=== PATIENT | female | born 1980 | race Caucasian/White ===

== ENCOUNTER → 2017-06-21 | Outpatient (CLI) | payer OTHER ==
--- NOTE | 2017-06-21 16:17 | Diagnostic Imaging Report ---
EXAM: Ultrasound of the neck. INDICATION: Neck mass FINDINGS: The right thyroid lobe is 5.1 x 2 x 1.4 cm. The left lobe is 10.1 x 2.5 x 1.9 ccm. There is a partially exophytic thyroid mass arising from the upper aspect of the left thyroid lobe measuring 4.5 x 2.5 x 3.4 cm. This mass has internal vascularity with solid appearance. Margins are smooth. IMPRESSION: A 4.5 cm solid mass arising from the upper aspect of the left thyroid lobe is seen. Evaluation with an ultrasound-guided biopsy is recommended. Report faxed to Dr. Niranjan Rivera at 4:20 p.m. 06/21/2017/cb Dictated by: Dictated on workstation # [id number]
== END ==
LOC: RAD 14:05
PROVIDERS: ATTEND Family Medicine
DX: E04.9 Nontoxic goiter, unspecified (principal)
CPT/HCPCS: 76536

== ENCOUNTER → 2017-07-05 | Outpatient (CLI) | payer OTHER ==
[~2017-07-05] VITALS: Ht 167.6 cm; Wt 102.1 kg
[~2017-07-05] MED LIST: LIDOCAINE 1% INJ 20 ML (XYLOCAINE) VIAL INJ ONE
[2017-07-05 13:00] VITALS: BP 118/68
[2017-07-05 13:32] VITALS: BP 124/71
--- NOTE | 2017-07-05 16:29 | Diagnostic Imaging Report ---
EXAMINATION: US-guided core biopsy-thyroid. INDICATION: Left thyroid. Current history and physical and other medical records are reviewed prior to the procedure. CONSENT: Informed consent was obtained from the patient. The risks, benefits, potential complications and alternatives were reviewed and all questions answered to the patient's satisfaction. The patient's vital signs, cardiac rhythm, and pulse oximetry with observed throughout the procedure by qualified nursing personnel. Sedation/medications: none. FINDINGS: Left thyroid mass. PROCEDURE: After maximal sterile barrier technique preparation and draping, 1% lidocaine was utilized for local anesthesia. With the patient in supine position, and via anterior approach, a 19-gauge guide needle is introduced into the left thyroid mass under live ultrasound guidance. After confirming adequate positioning with saved ultrasound images, multiple 20 gauge core biopsy specimens were obtained. The patient tolerated the procedure well with no immediate complications. IMPRESSION: Successful US-guided core biopsy of left thyroid mass. Dictated by: Dictated on workstation # [id number]
== END ==
LOC: RAD 12:39
PROVIDERS: ATTEND Family Medicine
DX: R22.1 Localized swelling, mass and lump, neck (principal)
CPT/HCPCS: 76942

== ENCOUNTER → 2017-08-08 | Outpatient (CLI) | payer OTHER ==
[2017-08-08 17:30] LABS: FREE T4 (FREE THYROXINE) 0.98 NG/DL (0.70-1.48)
== END ==
LOC: LAB 16:25
PROVIDERS: ATTEND Surgery
DX: E04.1 Nontoxic single thyroid nodule (principal)
CPT/HCPCS: 36415; 84439; 84443; 84480; 86376; 86800

== ENCOUNTER 2017-08-13 05:47 | Outpatient (CLI) | payer OTHER ==
[~2017-08-13] VITALS: Ht 167.6 cm; Wt 128.4 kg
[2017-08-13] MEDS ORDERED: LISI-552 PO (14:45)
[2017-08-13] MEDS ORDERED: IBUP-1780 PO (14:45)
[2017-08-13] MEDS ORDERED: HYDR25TA4 PO (14:45)
[2017-08-13] MEDS ORDERED: PANT40TA3 PO (14:45)
[2017-08-13] MEDS ORDERED: BUPR-168 PO (14:45)
[2017-08-13] MEDS ORDERED: PROP40TA5 PO (14:54)
== END 2017-08-13 15:13 ==
LOC: PREOP 05:47
PROVIDERS: ATTEND Surgery
DX: Z01.818 Encounter for other preprocedural examination (principal); E04.1 Nontoxic single thyroid nodule

== ENCOUNTER 2017-08-17 05:53 | Day surgery (SDC) | payer OTHER ==
[~2017-08-17] VITALS: Ht 167.6 cm; Wt 128.4 kg
[2017-08-17] VITALS (8 sets, daily range): BP systolic 95–119; BP diastolic 56–94
[~2017-08-17 05:53] MED LIST changes: +BUPR-168 PO; +HYDR25TA4 PO; +IBUP-1780 PO; -LIDOCAINE 1% INJ 20 ML (XYLOCAINE) VIAL INJ ONE; +LISI-552 PO; +PANT40TA3 PO; +PROP40TA5 PO
--- OUTSIDE RECORDS SUMMARY | 2017-08-17 05:57 | XMS REPORT | Continuity of Care Document ---
Author Author [facility] Organization [facility] Address Unknown Phone Unavailable Allergies Active Description Code Type Severity Reaction Onset Reported/Identified Relationship to Patient Clinical Status Yes No Known Drug Allergies [id number] Drug Allergy Unknown N/A 07/05/2017 Medications There is no data. Problems Date Dx Coded Attending Type Code Diagnosis Diagnosed By 10/20/2015 SHERYLLIZBETH PAINT LINE OPERATOR Ot M25.571 10/20/2015 SHERYLLIZBETH PAINT LINE OPERATOR Ot R53.83 10/29/2015 MACKENZIELIZBETH WOODWARD PAINT LINE OPERATOR Ot M25.571 10/29/2015 SHERYLLIZBETH PAINT LINE OPERATOR Ot R53.83 11/03/2015 DALIZBETH WOODWARD PAINT LINE OPERATOR Ot R22.31 11/03/2015 DALIZBETH WOODWARD PAINT LINE OPERATOR Ot Z12.31 11/08/2015 DAJANUARYLIZBETH SKY PAINT LINE OPERATOR Ot R22.31 11/08/2015 DALIZBETH WOODWARD PAINT LINE OPERATOR Ot Z12.31 08/09/2016 LIZBETH SAUCEDO PAINT LINE OPERATOR Ot M25.571 PAIN IN RIGHT ANKLE AND JOINTS OF RIGHT 08/09/2016 DALIZBETH WOODWARD PAINT LINE OPERATOR Ot R53.83 OTHER FATIGUE 08/09/2016 DALIZBETH WOODWARD PAINT LINE OPERATOR Ot R22.31 LOCALIZED SWELLING, MASS AND LUMP, RIGHT 08/09/2016 DALIZBETH WOODWARD PAINT LINE OPERATOR Ot Z12.31 ENCNTR SCREEN MAMMOGRAM FOR MALIGNANT NE 06/20/2017 DALIZBETH WOODWARD PAINT LINE OPERATOR Ot M25.571 PAIN IN RIGHT ANKLE AND JOINTS OF RIGHT 06/20/2017 DALIZBETH WOODWARD PAINT LINE OPERATOR Ot R53.83 OTHER FATIGUE 06/20/2017 DAJANUARYLIZBETH SKY PAINT LINE OPERATOR Ot R22.31 LOCALIZED SWELLING, MASS AND LUMP, RIGHT 06/20/2017 DATRACELIZBETH PAINT LINE OPERATOR Ot Z12.31 ENCNTR SCREEN MAMMOGRAM FOR MALIGNANT NE 06/20/2017 LIZBETH SAUCEDO BRADLEY Ot M25.571 PAIN IN RIGHT ANKLE AND JOINTS OF RIGHT 06/20/2017 LIZBETH SAUCEDO BRADLEY Ot R53.83 OTHER FATIGUE 06/20/2017 LIZBETH SAUCEDO APRN Ot R22.31 LOCALIZED SWELLING, MASS AND LUMP, RIGHT 06/20/2017 LIZBETH SAUCEDO BRADLEY Ot Z12.31 ENCNTR SCREEN MAMMOGRAM FOR MALIGNANT NE 06/22/2017 EDWARDO ROSE MD Ot E04.9 NONTOXIC GOITER, UNSPECIFIED 07/06/2017 EDWARDO ROSE MD Ot R22.1 LOCALIZED SWELLING, MASS AND LUMP, NECK 07/18/2017 EDWARDO ROSE MD Ot R22.1 LOCALIZED SWELLING, MASS AND LUMP, NECK Procedures There is no data. Results There is no data. Encounters ACCT No. Visit Date/Time Discharge Status Pt. Type Provider Facility Loc./Unit Complaint [id number] 08/13/2017 05:47:00 08/13/2017 15:13:00 DIS Outpatient ANTON ESCALONA MD [facility] PREOP LEFT THYROID NODULE [id number] 08/08/2017 16:25:00 08/08/2017 23:59:59 CLS Outpatient ANTON ESCALONA MD [facility] LAB LEFT THYROID NODULE [id number] 07/05/2017 12:39:00 07/05/2017 23:59:59 CLS Outpatient EDWARDO ROSE MD [facility] RAD LT THYROID MASS [id number] 06/21/2017 14:05:00 06/21/2017 23:59:59 CLS Outpatient EDWARDO ROSE MD [facility] RAD NECK MASS [id number] 10/28/2015 15:15:00 10/28/2015 23:59:59 CLS Outpatient LIZBETH SAUCEDO APRN [facility] RAD SCREENING,SWELLING, MASS AND LUMP RIGHT UPPER LIMB [id number] 10/19/2015 11:06:00 10/19/2015 23:59:59 CLS Outpatient LIZBETH SAUCEDO APRN [facility] CARD FATIGUE,PAIN IN RIGHT ANKLE [id number] 08/17/2017 08:00:00 PEN Preadmit IQRA BARRERA, ANTON Abdi [facility] LEFT THYROID NODULE
[2017-08-17] MEDS ORDERED: ceFAZolin 2 GM/50 ML NS 50 ML IV ONE (06:30)
[2017-08-17 06:47] LABS: BASOPHILS # (AUTO) 0.1 10^3/uL (0.0-0.1); BASOPHILS % (AUTO) 1 % (0-10); EOSINOPHILS # (AUTO) 0.2 10^3/uL (0.0-0.3); EOSINOPHILS % (AUTO) 3 % (0-10); HEMATOCRIT 42 % (35-52); HEMOGLOBIN 14.9 G/DL (11.5-16.0); LYMPHOCYTES % (AUTO) 13 % (12-44); MEAN CORPUSCULAR HEMOGLOBIN 33 PG (25-34); MEAN CORPUSCULAR HGB CONC 35 G/DL (32-36); MEAN CORPUSCULAR VOLUME 93 FL (80-99); MEAN PLATELET VOLUME 11.4 FL (7.4-10.4); MONOCYTES # (AUTO) 1.3 X 10^3 (0.0-1.0); MONOCYTES % (AUTO) 16 % (0-12); NEUTROPHILS # (AUTO) 5.3 X 10^3 (1.8-7.8); NEUTROPHILS % (AUTO) 68 % (42-75); PLATELET COUNT 237 10^3/uL (130-400); RED BLOOD COUNT 4.56 10^6/uL (4.35-5.85); RED CELL DISTRIBUTION WIDTH 14.3 % (10.0-14.5); WHITE BLOOD COUNT 7.8 10^3/uL (4.3-11.0)
[2017-08-17 07:03] LABS: BUN/CREATININE RATIO 9; CALCIUM 9.6 MG/DL (8.5-10.1); CARBON DIOXIDE 24 MMOL/L (21-32); CHLORIDE 104 MMOL/L (98-107); CREATININE SERUM 0.78 MG/DL (0.60-1.30); GFR ESTIMATED > 60; GLUCOSE 108 MG/DL (70-105); POTASSIUM 3.6 MMOL/L (3.6-5.0); SODIUM 140 MMOL/L (135-145)
[2017-08-17] MEDS ORDERED: THROMBIN SPRAY KIT 5,000 UNIT VIAL ONE (07:12)
[2017-08-17] MEDS ORDERED: BUP/EPI 0.5% 1:200,000 (MARCAINE) 10ML VIAL IJ ONE (07:12)
[2017-08-17] MEDS ORDERED: SEVOFLURANE (ULTANE) 15 ML INHAL SOLN ONE ×7 (07:14→10:05)
[2017-08-17] MEDS ORDERED: proPOfol 200 MG/20 ML (DIPRIVAN) VIAL IV ONE (07:14)
[2017-08-17] MEDS ORDERED: LIDOCAINE PF 2% 5 ML (XYLOCAINE) VIAL ONE (07:14)
[2017-08-17] MEDS ORDERED: SUCCINYLCHOLINE INJ 100 MG/5 ML SYR ONE (07:14)
[2017-08-17] MEDS ORDERED: fentaNYL INJECTION 100 MCG/2 ML AMP ONE ×2 (07:15→10:05)
[2017-08-17] MEDS ORDERED: MIDAZOLAM 2 MG/2 ML (VERSED) VIAL ONE (07:15)
--- NOTE | 2017-08-17 07:47 | Progress Note-Pre Operative ---
Pre-Operative Progress Note H&P Reviewed The H&P was reviewed, patient examined and no changes noted. 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
[2017-08-17] MEDS ORDERED: LACTATED RINGERS 1,000 ML IV PRN (09:23)
[2017-08-17] MEDS ORDERED: DEXAMETHASONE 10 MG/ML (DECADRON) 1 ML VIAL ONE (10:05)
--- NOTE | 2017-08-17 10:13 | Operative Report ---
Operative Report Date of Procedure/Surgery Aug 17, 2017 Surgeon (s) ANTON ESCALONA MD [employer]ing Press Operator (s): Erasto Cruz (Medi Student) Post-Operative Diagnosis Follicular adenoma of left lobe of thyroid Procedure Performed Left hemithyroidectomy with frozen section analysis Intraoperative nerve monitoring Description of Procedure Anesthesia Type: General Estimated blood loss (mL): Minimal Specimen(s) collected/removed left lobe of thyroid with isthmus Description of the Procedure Indication for procedure: A 4.5 cm, left thyroid nodule was identified on a physical examination by her primary physician. Ultrasound confirmed this and core biopsy was indicative of a follicular neoplasm. Therefore, it was felt reasonable to proceed with hemithyroidectomy to establish a definitive diagnosis. Should carcinoma be found on frozen section, the requirement for completion thyroidectomy was discussed. With reference to the procedure, expected recovery, complications of hematoma, transient hoarseness of voice and cardio-respiratory dysfunction where discussed with her. Informed consent was obtained. Description of the procedure: She was placed supine on the operating table and general anesthesia induced using an endotracheal tube. 2 g of Ancef were administered intravenously as prophylaxis against wound infection. Sequential compression devices were placed around her legs, to minimize the risk of venous thrombosis. Her neck and upper chest were prepared and draped in the usual sterile manner. Pre--emptive analgesia was established using 0.5 percent Marcaine with epinephrine. A 4 cm transverse incision was made along the skin crease of the neck and platysma incised transversely. Flaps raised superiorly to the level of the thyroid cartilage and inferiorly to the sternal notch. Initially, I retracted the strap muscles laterally, trying to bring the large nodule within the upper pole of the left lobe into view. Since this was difficult, I elected to divide the strap muscles using Harmonic scalpel. Eventually, the lobe came into view easily. Superior thyroid artery was controlled between 0 silk sutures, reinforced with ligaclips. Recurrent laryngeal nerve was identified white visual inspection and intermittent nerve stimulation technique, being carefully protected. I was able to identify one parathyroid gland, possibly superior in location, and preserve its blood supply. The isthmus was then divided using Harmonic scalpel. Branches of the inferior thyroid artery were controlled using a combination of ligaclips and careful use of harmonic scalpel. The large nodule with the attached and compressed lobe was sent for frozen section analysis. The pathologist reported benign changes. We had the anesthesiologist conduct Valsalva maneuver, looking for any venous bleeding. There wasn't any. Gelfoam, soaked in thrombin solution was placed along the tract tracheo-esophageal groove, to optimize hemostasis. Neck was then flexed in preparation for closure. Cervical fascia was approximated using 3-0 Vicryl and platysma using the same material. Skin was closed using 4-0 Vicryl, in a subcuticular fashion. She tolerated the procedure well, was extubated in the operating room and taken to recovery in stable condition. Findings of the Procedure See op report Allergies and Home Medications Allergies Coded Allergies: No Known Drug Allergies (Unverified , 07/05/17) Home Medications Bupropion HCl 75 Mg Tablet, 75 MG PO BID, (Reported) Hydrochlorothiazide 25 Mg Tablet, 25 MG PO DAILY, (Reported) Ibuprofen 800 Mg Tablet, 800 MG PO TID PRN for PAIN, (Reported) Lisinopril 20 Mg Tablet, 20 MG PO DAILY, (Reported) Propranolol HCl 40 Mg Tablet, 40 MG PO DAILY, (Reported) ANTON ESCALONA MD Aug 17, 2017 10:13 am
[2017-08-17] MEDS ORDERED: ACHD5005 PO (10:14)
[2017-08-17] MEDS ORDERED: fentaNYL INJECTION 100 MCG/2 ML AMP IVP PRN (10:15)
[2017-08-17] MEDS ORDERED: ONDANSETRON 4 MG/2 ML (SDV) Z0FRAN IVP PRN ×2 (10:15→10:45)
--- NOTE | 2017-08-17 10:15 | Discharge Inst-Simple/Standard ---
Discharge Inst-Standard Discharge Medications New, Converted or Re-Newed RX: RX on Chart Patient Instructions/Follow Up Plan of Care/Instructions/FU: Dressings off in a.m. Follow-up in 3 weeks. Activity as Tolerated: Yes Discharge Diet: No Restrictions ANTON ESCALONA MD Aug 17, 2017 10:15 am
[2017-08-17] MEDS ORDERED: morphine INJ 10 MG/ML 1ML (SYR OR VIAL) ONE (10:35)
[2017-08-17] MEDS: morphine INJ 10 MG/ML 1ML (SYR OR VIAL) IVP PRN ×2 (10:37→10:45)
[2017-08-17] MEDS: LACTATED RINGERS 1,000 ML IV SCH ×2 (12:13→21:15)
[2017-08-17] MEDS ORDERED: PATIENT MAY USE OWN MEDS, ALL MC SCH (13:45)
[2017-08-17] MEDS: METOCLOPRAMIDE INJ 10 MG/2 ML (REGLAN) IVP SCH ×2 (13:49→18:54)
[2017-08-17] MEDS ORDERED: SCOPOLAMINE 1.5 MG (TRANSDERM-SCOP) PATCH TOP SCH (18:00)
[2017-08-17] MEDS: HYDROcodone/APAP 5 MG/325 MG (LORTAB) TAB PO PRN (19:40)
[2017-08-17] MEDS: buPROPion 75 MG (WELLBUTRIN) TAB PO SCH (21:15)
[2017-08-18] VITALS: BP 113/57
[2017-08-18] MEDS: METOCLOPRAMIDE INJ 10 MG/2 ML (REGLAN) IVP SCH ×2 (00:09→05:07)
[2017-08-18 04:00] VITALS: BP 119/70
[2017-08-18] MEDS: HYDROcodone/APAP 5 MG/325 MG (LORTAB) TAB PO PRN (04:10)
[2017-08-18] MEDS: LACTATED RINGERS 1,000 ML IV SCH (06:48)
[2017-08-18 08:00] VITALS: BP 107/62
[2017-08-18] MEDS: buPROPion 75 MG (WELLBUTRIN) TAB PO SCH (08:02)
[2017-08-18] MEDS ORDERED: lisINopril 20 MG (ZESTRIL) TAB PO SCH (09:00)
[2017-08-18] MEDS ORDERED: PROPRANOLOL HCL 40 MG PO SCH (09:00)
[2017-08-18 11:20] VITALS: BP 107/62
--- NOTE | 2017-08-18 12:08 | Progress Note-Standard ---
Standard Progress Note Progress Notes/Assess & Plan Date Seen by Provider: Aug 18, 2017 Time Seen by Provider: 11:00 Progress/Assessment & Plan postoperative nausea and vomiting resolved. Vocal cord function intact. Incision dry. Tolerating diet and could be discharged home Final Diagnosis follicular adenoma left lobe of thyroid ANTON ESCALONA MD Aug 18, 2017 12:08 pm
[2017-08-20] MEDS ORDERED: SCOPOLAMINE PATCH REMOVAL TP SCH (17:59)
== END 2017-08-18 11:20 | disposition home or self-care (01) ==
LOC: SDC 05:53 → ICU 11:30 → 4TH 18:22 → SDC 08-18 11:20
PROVIDERS: ATTEND Surgery
DX: D34 Benign neoplasm of thyroid gland (principal); I10 Essential (primary) hypertension; E66.01 Morbid (severe) obesity due to excess calories; Z68.42 Body mass index [BMI] 45.0-49.9, adult; Z79.899 Other long term (current) drug therapy
CPT/HCPCS: 36415; 80048; 84703; 85025; 87081

== ENCOUNTER → 2017-09-04 | Outpatient (CLI) | payer OTHER ==
[~2017-09-04] MED LIST changes: +ACHD5005 PO
== END ==
LOC: LAB 14:10
PROVIDERS: ATTEND Surgery
DX: E05.90 Thyrotoxicosis, unspecified without thyrotoxic crisis or storm (principal); D34 Benign neoplasm of thyroid gland
CPT/HCPCS: 36415; 84436; 84443

== ENCOUNTER → 2018-02-19 | Outpatient (CLI) | payer OTHER | LOC: LAB 14:10 | PROVIDERS: ATTEND Surgery | DX: R53.83 Other fatigue (principal); E89.0 Postprocedural hypothyroidism | CPT/HCPCS: 36415; 84436; 84443 ==

== ENCOUNTER → 2020-06-09 | Outpatient (CLI) | payer OTHER ==
[~2020-06-09] MED LIST changes: -PANT40TA3 PO; +PANT40TA52 PO
[2020-06-09 08:11] LABS: BASOPHILS % (AUTO) 1 % (0-10); EOSINOPHILS # (AUTO) 0.2 10^3/uL (0.0-0.3); EOSINOPHILS % (AUTO) 2 % (0-10); HEMATOCRIT 42 % (35-52); LYMPHOCYTES # (AUTO) 2.4 10^3/uL (1.0-4.0); LYMPHOCYTES % (AUTO) 33 % (12-44); MEAN CORPUSCULAR HEMOGLOBIN 32 pg (25-34); MEAN CORPUSCULAR HGB CONC 33 g/dL (32-36); MEAN CORPUSCULAR VOLUME 96 fL (80-99); MEAN PLATELET VOLUME 11.4 fL (9.0-12.2); MONOCYTES # (AUTO) 0.5 10^3/uL (0.0-1.0); MONOCYTES % (AUTO) 6 % (0-12); NEUTROPHILS # (AUTO) 4.3 10^3/uL (1.8-7.8); NEUTROPHILS % (AUTO) 58 % (42-75); PLATELET COUNT 228 10^3/uL (130-400); WHITE BLOOD COUNT 7.4 10^3/uL (4.3-11.0)
[2020-06-09 08:25] LABS: ALANINE AMINOTRANSFERASE 21 U/L (0-55); ALBUMIN 4.4 GM/DL (3.2-4.5); ALKALINE PHOSPHATASE 58 U/L (40-136); BILIRUBIN,TOTAL 0.4 MG/DL (0.1-1.0); BUN/CREATININE RATIO 25; CALCIUM 9.2 MG/DL (8.5-10.1); CARBON DIOXIDE 21 MMOL/L (21-32); CHLORIDE 108 MMOL/L (98-107); CREATININE SERUM 0.81 MG/DL (0.60-1.30); GFR ESTIMATED > 60; GLUCOSE 101 MG/DL (70-105); LIPASE 18 U/L (8-78); POTASSIUM 3.8 MMOL/L (3.6-5.0); SODIUM 140 MMOL/L (135-145); TOTAL PROTEIN 7.3 GM/DL (6.4-8.2)
--- NOTE | 2020-06-09 10:02 | Diagnostic Imaging Report ---
PROCEDURE: US Gallbladder. TECHNIQUE: Multiple real-time grayscale images were obtained over the right upper quadrant in various projections. INDICATION: Right upper quadrant pain. FINDINGS: Mild echogenic appearance to the liver is noted. Liver is mildly enlarged measuring 19 cm in long axis. Bile ducts are not dilated. Gallbladder is not distended. No gallstones or wall thickening demonstrated. No pericholecystic fluid. Acoustical shadowing from the liver and bowel obscures the common duct. This also obscures the pancreas. The aorta, vena cava, and portal vein appear normal with Doppler sampling. Right kidney appears normal measuring 11 x 4.7 x 4 cm. There is no ascites. IMPRESSION: Mild hepatomegaly with hepatic steatosis. No acute abnormalities noted. The detail is somewhat limited due to bowel gas in the midline. Dictated by: Dictated on workstation # [id number]
== END ==
LOC: RAD 08:00
PROVIDERS: ATTEND Family Medicine
DX: K76.0 Fatty (change of) liver, not elsewhere classified (principal); R16.0 Hepatomegaly, not elsewhere classified
CPT/HCPCS: 36415; 76705; 80053; 83690; 85025

== ENCOUNTER → 2020-07-05 | Outpatient (CLI) | payer OTHER ==
[~2020-07-05] MED LIST changes: +CATHETER FLUSH 10 ML SYR IV PRN
--- NOTE | 2020-07-05 12:36 | Diagnostic Imaging Report ---
INDICATION: Right upper quadrant pain. TECHNIQUE: The patient was administered 5.4 mCi of technetium 99m Choletec intravenously and imaging over the abdomen was performed. After 60 minutes, the patient ingested one can of Ensure and the gallbladder ejection fraction was calculated. FINDINGS: There is homogeneous uptake of activity by the liver with prompt excretion of activity into the common duct and gallbladder. There is normal passage of activity into the small bowel. The gallbladder ejection fraction is slightly low at 33%. Normal values are 35% or greater. IMPRESSION: 1. Patent cystic duct and common bile duct. 2. Slightly low gallbladder ejection fraction of 33%. Dictated by: Dictated on workstation # [id number]
== END ==
LOC: CARD 09:18
PROVIDERS: ATTEND Surgery
DX: K82.8 Other specified diseases of gallbladder (principal)
CPT/HCPCS: 78227; A9537

== ENCOUNTER 2020-07-09 11:15 | Outpatient (RCR) | payer OTHER ==
[~2020-07-09] VITALS: Ht 160 cm; Wt 129.5 kg
[~2020-07-09 11:15] MED LIST changes: -CATHETER FLUSH 10 ML SYR IV PRN; +HYDR-700 PO; +TOPI100T11 PO
== END 2020-07-09 11:16 | disposition home or self-care (01) ==
LOC: PREOP 11:15
PROVIDERS: ATTEND Surgery
DX: Z01.812 Encounter for preprocedural laboratory examination (principal); K82.8 Other specified diseases of gallbladder

== ENCOUNTER 2020-07-15 10:29 | Day surgery (SDC) | payer OTHER ==
[2020-07-15] VITALS (10 sets, daily range): BP systolic 110–131; BP diastolic 68–82
[~2020-07-15] VITALS: Ht 160 cm; Wt 129.5 kg
[2020-07-15] MEDS ORDERED: ceFAZolin 2 GM IV Premixed 50 ML IV ONE (11:15)
[2020-07-15] MEDS: LACTATED RINGERS 1,000 ML IV PRN ×2 (11:25→14:12)
[2020-07-15 11:33] LABS: BASOPHILS % (AUTO) 1 % (0-10); EOSINOPHILS # (AUTO) 0.1 10^3/uL (0.0-0.3); EOSINOPHILS % (AUTO) 2 % (0-10); HEMATOCRIT 40 % (35-52); HEMOGLOBIN 13.7 g/dL (11.5-16.0); LYMPHOCYTES # (AUTO) 2.1 10^3/uL (1.0-4.0); LYMPHOCYTES % (AUTO) 33 % (12-44); MEAN CORPUSCULAR HEMOGLOBIN 32 pg (25-34); MEAN CORPUSCULAR HGB CONC 34 g/dL (32-36); MEAN CORPUSCULAR VOLUME 95 fL (80-99); MEAN PLATELET VOLUME 11.3 fL (9.0-12.2); MONOCYTES # (AUTO) 0.5 10^3/uL (0.0-1.0); MONOCYTES % (AUTO) 8 % (0-12); NEUTROPHILS # (AUTO) 3.7 10^3/uL (1.8-7.8); NEUTROPHILS % (AUTO) 57 % (42-75); PLATELET COUNT 258 10^3/uL (130-400); WHITE BLOOD COUNT 6.5 10^3/uL (4.3-11.0)
[2020-07-15] MEDS ORDERED: CATHETER FLUSH 10 ML SYR IV PRN (11:45)
[2020-07-15] MEDS ORDERED: HYDR-4227 PO (11:56)
--- NOTE | 2020-07-15 11:56 | Discharge Inst-Surgical ---
D/C Lap Instructions-KIDO Reconcile Patient Problems Problems Reviewed?: Yes New, Converted, or Re-Newed RX: RX on Chart Follow Up Appt in 2 weeks Activity as tolerated No driving for 24 hours No driving while on pain medications Incentive Spirometry use every 2 hours while awake Regular Diet Symptoms to Report: Fever over 101 degree F, Nausea/Vomiting Infection Signs and Symptoms to report: Increased redness, Foul odor of wound, Increased drainage Bathing instructions: May shower Operative Area Clean/Dry; Keep incision clean/dry If any problems/questions: Contact your physician or go to Emergency Room BONG CALIXTO APRN Jul 15, 2020 11:56
--- NOTE | 2020-07-15 11:57 | Progress Note-Pre Operative ---
Pre-Operative Progress Note H&P Reviewed The H&P was reviewed, patient examined and no changes noted. Date Seen by Provider: Jul 15, 2020 Time Seen by Provider: 11:55 Date H&P Reviewed: Jul 15, 2020 Time H&P Reviewed: 11:50 Pre-Operative Diagnosis: Biliary dyskinesia BONG CALIXTO APRN Jul 15, 2020 11:57
[2020-07-15] MEDS ORDERED: fentaNYL INJECTION 100 MCG/2 ML AMP IVP PRN (12:00)
[2020-07-15] MEDS ORDERED: HYDROcodone/APAP 5 MG/325 MG (LORTAB) TAB PO ONE (12:00)
[2020-07-15] MEDS ORDERED: ONDANSETRON 4 MG/2 ML (SDV) Z0FRAN IVP PRN ×2 (12:00→15:30)
[2020-07-15] MEDS ORDERED: ACETAMINOPHEN 325 MG TABLET PO PRN (12:00)
[2020-07-15] MEDS ORDERED: fentaNYL INJECTION 100 MCG/2 ML AMP ONE (12:33)
[2020-07-15] MEDS ORDERED: proPOfol 200 MG/20 ML (DIPRIVAN) VIAL IV ONE (12:33)
[2020-07-15] MEDS ORDERED: LIDOCAINE PF 2% 5 ML (XYLOCAINE) VIAL ONE (12:33)
[2020-07-15] MEDS ORDERED: MIDAZOLAM 2 MG/2 ML (VERSED) VIAL ONE (12:33)
[2020-07-15] MEDS ORDERED: ONDANSETRON 4 MG/2 ML (SDV) Z0FRAN ONE (12:33)
[2020-07-15] MEDS ORDERED: ROCURONIUM 10 MG/ML 5 ML SYRINGE IV ONE (12:33)
[2020-07-15] MEDS ORDERED: GLYCOPYRROLATE 0.2 MG/ML (ROBINUL) 2 ML VIAL ONE (12:34)
[2020-07-15] MEDS ORDERED: SEVOFLURANE (ULTANE) 15 ML INHAL SOLN ONE (12:34)
[2020-07-15] MEDS ORDERED: NEOSTIGMINE 3 MG/3 ML VIAL ONE (12:34)
[2020-07-15] MEDS ORDERED: LIDOCAINE/EPI 1%-1:100,000 (XYLOCAINE) 20ML ONE (12:47)
--- NOTE | 2020-07-15 14:48 | NUR ---
Water Registrar offered prayer for healing and offered active listening and calming presence.
--- NOTE | 2020-07-15 15:13 | Progress Note-Post Operative ---
Post-Operative Progess Note Surgeon (s)/Bailiff (s) Surgeon ALANA CRANE MD Bailiff: ankita paiz WATER AND SEWER SYSTEMS SUPERVISOR Pre-Operative Diagnosis Biliary dyskinesia Post-Operative Diagnosis same Procedure & Operative Findings Date of Procedure 07/15/20 Procedure Performed/Findings laparoscopic cholecystectomy Anesthesia Type get Estimated Blood Loss Estimated blood loss (mL): minimal Specimens/Packing Specimens Removed gallbladder ALANA CRANE MD Jul 15, 2020 15:13
--- NOTE | 2020-07-15 15:26 | Anesthesia-General Post-Op ---
General Patient Condition Mental Status/LOC: Same as Preop Cardiovascular: Satisfactory Nausea/Vomiting: Absent Respiratory: Satisfactory Pain: Controlled Complications: Absent Post Op Complications Complications None Follow Up Care/Instructions Patient Instructions None needed. Anesthesia/Patient Condition Patient Condition Patient is doing well, no complaints, stable vital signs, no apparent adverse anesthesia problems. No complications reported per nursing. ALICIA ORTEGA CRNA Jul 15, 2020 15:26
[2020-07-15] MEDS ORDERED: fentaNYL INJECTION 100 MCG/2 ML AMP IVP ONE (15:30)
[2020-07-15] MEDS ORDERED: HYDROcodone/APAP 5 MG/325 MG (LORTAB) TAB ONE (16:42)
--- NOTE | 2020-07-15 22:54 | OPERATIVE REPORT ---
DATE OF SERVICE: 07/15/2020 ATTENDING PRIMARY CARE PHYSICIAN: Dr. Niranjan Rivera. PREOPERATIVE DIAGNOSIS: Symptomatic biliary dyskinesia. POSTOPERATIVE DIAGNOSIS: Symptomatic biliary dyskinesia. PROCEDURE: Laparoscopic cholecystectomy. SURGEON: Alana Crane MD. PRODUCTION OPERATIONS ENGINEER: Preet Geronimo APRN. ANESTHESIA: General endotracheal. ESTIMATED BLOOD LOSS: Minimal. FINDINGS: Distended gallbladder with significant cholesterolosis. DISPOSITION: The patient tolerated the procedure well. INDICATIONS: The patient is a 40-year-old female referred over to us for a 6-week history of right upper abdominal quadrant pain with radiation towards the back and associated nausea. She had reported that these symptoms would occur after eating a meal; however, was unsure of any specific types of foods. She also had reported occasional episodes of reflux as well as diarrhea. She had also reported some abdominal bloating on occasion as well. Ultrasound was performed, which did not show any gallstones; however, she did have a HIDA scan performed and during the administration of a Kinevac analogue, she did have significant reproduction of symptoms consistent with symptomatic biliary dyskinesia. DESCRIPTION OF PROCEDURE: The patient was brought to the operating room, laid supine on the table. After adequate IV pain and sedative medications and general endotracheal intubation, the abdomen was prepped and draped in standard surgical fashion. A 0.5% Marcaine with epinephrine was then used to anesthetize the overlying skin in the left upper abdominal quadrant and a transverse skin incision made using 15-blade. An 0 silk suture was applied to the medial aspect of incision for retraction and a Veress needle inserted with a low opening pressure of 0 mmHg and the abdomen was then insufflated to 15 mmHg pressure. The Veress needle removed and a 5 mm XL trocar placed followed by a 5 mm 45-degree angle laparoscope visualizing the peritoneal cavity. A 4-quadrant abdominal exploration was performed. A distended gallbladder was identified with no gallbladder wall thickening. Under direct visualization, we then proceeded to place a supraumbilical 10 mm port after the skin and peritoneal lining were anesthetized using 0.5% Marcaine with epinephrine and a transverse skin incision made using a 15 blade. In a similar manner, a right upper abdominal quadrant 5 mm port was placed. The patient was then placed in reverse Trendelenburg position as well as plane right side up, left side down. The fundus of the gallbladder was then retracted anteriorly and superiorly and the hepatoduodenal ligament opened using blunt dissection as well as electrocautery on the hook instrument. The entire critical view of safety was identified including the cystic as well as the triangle of Calot as well as the cystic duct and artery as the only two structures going into the gallbladder as well as the cystic plate behind the proximal gallbladder. A timeout was then taken and the cystic duct and artery were then clipped proximally and distally and cut with EndoShears. The gallbladder was then dissected off the liver bed using electrocautery on the hook instrument with visualization of good hemostasis as well as no leaking ducts of Luschka. The gallbladder was removed through the 10 mm port site using an EndoCatch bag. The 10 mm port site fascia and peritoneum were then closed under direct visualization using a Charbel-Satya device and an 0 Vicryl suture. The abdomen was desufflated and remaining ports removed. All skin incisions were closed using 4-0 Monocryl running subcuticular sutures. Wounds were then cleaned and covered with Dermabond. All skin incisions were closed using 4-0 Monocryl running subcuticular sutures. Wounds were then cleaned and covered with Dermabond. The patient tolerated the procedure well. We will start IV normal pain medication as well as a clear liquid diet. When she is tolerating clears, has good pain control with oral pain medications, ambulating well, we will discharge her home. She will be instructed to do no heavy lifting or exertion for the next two weeks. Job ID: [id number] DocumentID: [id number] Dictated Date: 07/15/2020 15:12:17 Production Control Coordinating Clerk Date: 07/15/2020 22:54:11 Dictated By: ALANA CRANE MD
== END 2020-07-15 17:03 | disposition home or self-care (01) ==
LOC: SDC 10:29
PROVIDERS: ATTEND Surgery
DX: K81.1 Chronic cholecystitis (principal); K82.8 Other specified diseases of gallbladder; I10 Essential (primary) hypertension; M06.9 Rheumatoid arthritis, unspecified; G89.29 Other chronic pain; E66.01 Morbid (severe) obesity due to excess calories; Z68.43 Body mass index [BMI] 50.0-59.9, adult; Z79.899 Other long term (current) drug therapy; Z88.5 Allergy status to narcotic agent
CPT/HCPCS: 36415; 84703; 85025; 87081; 88304

== ENCOUNTER 2020-07-29 18:39 | Emergency (ER) | payer OTHER ==
[~2020-07-29] VITALS: Ht 160 cm; Wt 128.8 kg
[~2020-07-29 18:39] MED LIST changes: +HYDR-4227 PO
[2020-07-29] MEDS ORDERED: LACTATED RINGERS 2,000 ML IV ONE (18:54)
[2020-07-29] MEDS ORDERED: LACTATED RINGERS 1,000 ML IV ONE ×2 (19:00)
[2020-07-29 19:05] LABS: BASOPHILS % (AUTO) 0 % (0-10); EOSINOPHILS % (AUTO) 0 % (0-10); HEMATOCRIT 41 % (35-52); HEMOGLOBIN 14.3 g/dL (11.5-16.0); LYMPHOCYTES # (AUTO) 1.2 10^3/uL (1.0-4.0); LYMPHOCYTES % (AUTO) 19 % (12-44); MEAN CORPUSCULAR HEMOGLOBIN 31 pg (25-34); MEAN CORPUSCULAR HGB CONC 35 g/dL (32-36); MEAN CORPUSCULAR VOLUME 91 fL (80-99); MEAN PLATELET VOLUME 11.8 fL (9.0-12.2); MONOCYTES # (AUTO) 0.5 10^3/uL (0.0-1.0); MONOCYTES % (AUTO) 8 % (0-12); NEUTROPHILS # (AUTO) 4.7 10^3/uL (1.8-7.8); NEUTROPHILS % (AUTO) 72 % (42-75); PLATELET COUNT 196 10^3/uL (130-400); WHITE BLOOD COUNT 6.4 10^3/uL (4.3-11.0)
--- NOTE | 2020-07-29 19:06 | ED Abdominal Pain ---
General Stated Complaint: FEVER,COUGH,DIARRHEA Source of Information: Patient Exam Limitations: No Limitations History of Present Illness Date Seen by Provider: Jul 29, 2020 Time Seen by Provider: 18:37 Initial Comments Patient presents ER by private conveyance with her significant other in chief complaint that she has been having some cold-like symptoms of congestion, chills, fever, body aches since the 9 days ago. On the she had her gallbladder out by Dr. CRANE. She missed her follow-up appointment because of the way she was feeling and she called to reschedule it. She called several days ago to Dr. Rose and he sent out some medications for her cold but they have not helped her. She is still feeling poorly tired and weak. She has hypertension taking lisinopril and propranolol for headaches but no other significant medical history. She has been eating okay and changed her diet significantly to keep from having so much diarrhea. She is not having nausea right now no headache. No known sick contacts. She has not had any testing done yet. Allergies and Home Medications Allergies Coded Allergies: morphine (Verified Allergy, Mild, N/V, 07/09/20) Home Medications Hydrochlorothiazide 25 Mg Tablet, 25 MG PO DAILY, (Reported) Hydrocodone/Acetaminophen 1 Each Tablet, 1 EACH PO Q4H PRN for PAIN-MODERATE (5- 7), (Reported) Hydrocodone/Acetaminophen 1 Each Tablet, 1-2 TAB PO Q4H Prescribed by: BONG CALIXTO on 07/15/20 1156 Hydroxyzine HCl 25 Mg Tablet, 25 MG PO PRN PRN for ANXIETY, (Reported) Ibuprofen 800 Mg Tablet, 800 MG PO Q8H PRN for PAIN-MILD, (Reported) Lisinopril 20 Mg Tablet, 20 MG PO DAILY, (Reported) Propranolol HCl 40 Mg Tablet, 40 MG PO DAILY, (Reported) Topiramate 100 Mg Tablet, 100 MG PO HS, (Reported) Patient Home Medication List Home Medication List Reviewed: Yes Review of Systems Review of Systems Constitutional: No chills, No diaphoresis EENTM: No Blurred Vision, No Double Vision Respiratory: Cough; Denies Shortness of Air Cardiovascular: Denies Chest Pain, Denies Lightheadedness Gastrointestinal: Denies Constipated; Diarrhea; Denies Nausea Genitourinary: Denies Burning, Denies Discharge Musculoskeletal: No back pain, No joint pain Psychiatric/Neurological: Denies Anxiety, Denies Depressed All Other Systems Reviewed Negative Unless Noted: Yes Past Ngovirk-Pxrhqf-Rrocnt Hx Patient Social History Alcohol Use: Denies Use Recreational Drug Use: No 2nd Hand Smoke Exposure: No Recent Hopitalizations: No Immunizations Up To Date Date of Influenza Vaccine: May 10, 2020 Seasonal Allergies Seasonal Allergies: No Past Medical History Surgeries: Yes (back sx x2, foot sx) Thyroidectomy Respiratory: No Cardiac: Yes Hypertension Neurological: No Sexually Transmitted Disease: No HIV/AIDS: No Genitourinary: No Gastrointestinal: Yes Chronic Constipation, Chronic Diarrhea, Gall Bladder Disease Musculoskeletal: Yes Arthritis, Chronic Back Pain Endocrine: Yes (PARTIAL THYROIDECTOMY) HEENT: Yes (GLASSES) Loss of Vision: Denies Hearing Impairment: Denies Cancer: No Psychosocial: Yes Anxiety Integumentary: No Blood Disorders: No Adverse Reaction/Blood Tranf: No (N/A) Physical Exam Vital Signs Vital Signs - First Documented 07/29/20 18:46 Temp 36.3 Pulse 87 Resp 18 B/P (MAP) 91/55 (67) Pulse Ox 96 O2 Delivery Room Air Capillary Refill : Height/Weight/BMI Height: 5'6.00" Weight: 283lbs. 0.0oz. 128.396052fu; 50.58 BMI Method: General Appearance: moderate distress, obese HEENT: PERRL/EOMI, pharynx normal Neck: non-tender, full range of motion, supple, normal inspection Respiratory: lungs clear, normal breath sounds, no respiratory distress, no accessory muscle use Cardiovascular: normal peripheral pulses, regular rate, rhythm Peripheral Pulses: 2+ Radial Pulses (R), 2+ Radial Pulses (L) Gastrointestinal: normal bowel sounds, soft, tenderness (Mild suprapubic), other (Clean dry intact laparoscopic surgical sites without induration, tend erness or discharge.) Neurologic/Psychiatric: alert, normal mood/affect, oriented x 3 Skin: normal color, warm/dry Progress/Results/Core Measures Results/Orders Lab Results Laboratory Tests Test 07/29/20 18:57 07/29/20 19:39 Range/Units White Blood Count 6.4 4.3-11.0 10^3/uL Red Blood Count 4.56 3.80-5.11 10^6/uL Hemoglobin 14.3 11.5-16.0 g/dL Hematocrit 41 35-52 % Mean Corpuscular Volume 91 80-99 fL Mean Corpuscular Hemoglobin 31 25-34 pg Mean Corpuscular Hemoglobin Concent 35 32-36 g/dL Red Cell Distribution Width 14.4 10.0-14.5 % Platelet Count 196 130-400 10^3/uL Mean Platelet Volume 11.8 9.0-12.2 fL Immature Granulocyte % (Auto) 1 % Neutrophils (%) (Auto) 72 42-75 % Lymphocytes (%) (Auto) 19 12-44 % Monocytes (%) (Auto) 8 0-12 % Eosinophils (%) (Auto) 0 0-10 % Basophils (%) (Auto) 0 0-10 % Neutrophils # (Auto) 4.7 1.8-7.8 10^3/uL Lymphocytes # (Auto) 1.2 1.0-4.0 10^3/uL Monocytes # (Auto) 0.5 0.0-1.0 10^3/uL Eosinophils # (Auto) 0.0 0.0-0.3 10^3/uL Basophils # (Auto) 0.0 0.0-0.1 10^3/uL Immature Granulocyte # (Auto) 0.0 0.0-0.1 10^3/uL Sodium Level 135 135-145 MMOL/L Potassium Level 2.6 L 3.6-5.0 MMOL/L Chloride Level 94 L 98-107 MMOL/L Carbon Dioxide Level 24 21-32 MMOL/L Anion Gap 17 H 5-14 MMOL/L Blood Urea Nitrogen 21 H 7-18 MG/DL Creatinine 0.97 0.60-1.30 MG/DL Estimat Glomerular Filtration Rate > 60 BUN/Creatinine Ratio 22 Glucose Level 103 70-105 MG/DL Calcium Level 8.6 8.5-10.1 MG/DL Corrected Calcium 8.7 8.5-10.1 MG/DL Magnesium Level 2.3 1.6-2.4 MG/DL Total Bilirubin 0.5 0.1-1.0 MG/DL Aspartate Amino Transf (AST/SGOT) 43 H 5-34 U/L Alanine Aminotransferase (ALT/SGPT) 40 0-55 U/L Alkaline Phosphatase 53 40-136 U/L C-Reactive Protein High Sensitivity 13.08 H 0.00-0.50 MG/DL Total Protein 7.4 6.4-8.2 GM/DL Albumin 3.9 3.2-4.5 GM/DL Lipase 64 8-78 U/L Coronavirus 2019 (BRENT) Positive H Negative Micro Results Microbiology 07/29/20 Influenza Types A,B Antigen (HANS) - Final, Complete My Orders Orders - CHANTEL SANTORO Lactated Ringers (Lr 1000 Ml Iv Solution (07/29/20 18:54) Ed Iv/Invasive Line Start (07/29/20 18:57) Lactated Ringers (Lr 1000 Ml Iv Solution (07/29/20 19:00) Lactated Ringers (Lr 1000 Ml Iv Solution (07/29/20 19:00) Cbc With Automated Diff (07/29/20 18:57) Comprehensive Metabolic Panel (07/29/20 18:57) Hs C Reactive Protein (07/29/20 18:57) Ua Culture If Indicated (07/29/20 18:57) Urine Bedside (07/29/20 18:57) Lipase (07/29/20 18:57) Covid 19 Inhouse Test (07/29/20 18:57) Influenza A And B Antigens (07/29/20 18:57) Magnesium (07/29/20 18:57) Procalcitonin (Pct) (07/29/20 19:52) Medications Given in ED Current Medications Medications Dose Ordered Sig/Connor Route Start Time Stop Time Status Last Admin Dose Admin Lactated Ringer's 1,000 ml @ 0 mls/hr Q0M ONCE IV 07/29/20 19:00 07/29/20 19:01 DC 07/29/20 19:03 1,000 MLS/HR Lactated Ringer's 1,000 ml @ 0 mls/hr Q0M ONCE IV 07/29/20 19:00 07/29/20 19:01 DC 07/29/20 19:46 1,000 MLS/HR Vital Signs/I&O 07/29/20 07/29/20 18:46 19:54 Temp 36.3 Pulse 87 80 Resp 18 18 B/P (MAP) 91/55 (67) 110/60 (77) Pulse Ox 96 95 O2 Delivery Room Air Room Air Progress Progress Note #1: Time: 19:13 Progress Note Suspect viral illness. Her abdomen is soft, nonsurgical. She is hypotensive with a inappropriate heart rate in the 80s and 90s. Suspect this is viral so while she may meet sepsis criteria we are not going to give antibiotics at this time. We're going to get Covid and influenza swabs. 2 L of lactated Ringer's. Suspect she is dehydrated from her diarrhea related to her recent cholecystectomy and/or viral syndrome. Progress Note #2: Time: 20:36 Progress Note As the patient is concluding her second liter of fluids she says she feels much better and would prefer to go home. We have given her return precautions. We have encouraged her to stop taking propranolol and lisinopril and follow-up with primary care. Systolic blood pressure around 120. Departure Impression Primary Impression: COVID-19 Additional Impression: Dehydration Disposition: 01 HOME, SELF-CARE Condition: Improved Departure-Patient Inst. Decision time for Depature: 20:36 Referrals: EDWARDO ROSE MD (PCP/Family) Primary Care Physician Patient Instructions: Dehydration, Adult ED, Coronavirus Disease 2019 (COVID- 19) ED Add. Discharge Instructions: You have COVID-19. You should quarantine yourself at home away from other people until you are 24 hours without symptoms such as fever, nausea or diarrhea without medications to mask the symptoms. Tylenol as necessary for headaches or pain. Drink lots of fluids over the next several days to rehydrate yourself. specialty department supervisor some Imodium/loperamide and take 2 tablets initially for diarrhea. Every 4 hours afterwards if you are still having loose, watery diarrhea then you should take another tablet. Stop taking Imodium when your stools soften up or become formed. Return to the ER if you are having worsening symptoms especially such as shortness of air. Stop taking your propranolol and lisinopril. When you are no longer sick you can follow-up with your primary care doctor and have these medications restarted if appropriate. Copy Copies To 1: EDWARDO ROSE MD, TITUS J Jul 29, 2020 19:06
[2020-07-29 19:16] LABS: ALBUMIN 3.9 GM/DL (3.2-4.5); CHLORIDE 94 MMOL/L (98-107); POTASSIUM 2.6 MMOL/L (3.6-5.0); SODIUM 135 MMOL/L (135-145)
[2020-07-29 19:17] LABS: CALCIUM 8.6 MG/DL (8.5-10.1)
[2020-07-29 19:19] LABS: GLUCOSE 103 MG/DL (70-105); TOTAL PROTEIN 7.4 GM/DL (6.4-8.2)
[2020-07-29 19:20] LABS: CARBON DIOXIDE 24 MMOL/L (21-32)
[2020-07-29 19:21] LABS: BILIRUBIN,TOTAL 0.5 MG/DL (0.1-1.0)
[2020-07-29 19:22] LABS: ALKALINE PHOSPHATASE 53 U/L (40-136)
[2020-07-29 19:23] LABS: CREATININE SERUM 0.97 MG/DL (0.60-1.30); GFR ESTIMATED > 60
[2020-07-29 19:24] LABS: BUN/CREATININE RATIO 22
[2020-07-29 19:25] LABS: ALANINE AMINOTRANSFERASE 40 U/L (0-55)
[2020-07-29 19:26] LABS: MAGNESIUM 2.3 MG/DL (1.6-2.4)
[2020-07-29 19:27] LABS: LIPASE 64 U/L (8-78)
[2020-07-29 20:39] VITALS: BP 113/66
== END 2020-07-29 20:51 | disposition home or self-care (01) ==
LOC: EDUNIT# 18:39 → ER 18:41
DX: U07.1 COVID-19 (principal); E86.0 Dehydration; E66.9 Obesity, unspecified; F41.9 Anxiety disorder, unspecified; I10 Essential (primary) hypertension; G89.29 Other chronic pain; M54.9 Dorsalgia, unspecified; Z68.43 Body mass index [BMI] 50.0-59.9, adult; Z88.5 Allergy status to narcotic agent; Z79.891 Long term (current) use of opiate analgesic
CPT/HCPCS: 80053; 83690; 83735; 84145; 85025; 86141; 87804; 99284; U0002; 36415; 87635

== ENCOUNTER → 2021-04-29 | Outpatient (CLI) | payer OTHER ==
[~2021-04-29] MED LIST changes: -LISI-552 PO; +LISI20TA26 PO
--- NOTE | 2021-04-29 19:26 | Diagnostic Imaging Report ---
PROCEDURE: US Non-OB pelvis comp/trans. TECHNIQUE: Multiple real-time grayscale images were obtained of the pelvis in various projections endovaginally. Transabdominal imaging was also performed. INDICATION: Dysfunctional uterine bleeding. FINDINGS: The endometrium is 1.3 cm in thickness. It did appear homogeneous in echotexture. There is no abnormal color Doppler blood flow. There is no fibroid or myometrial mass. The right ovary could not be visualized. The left ovary is difficult to interrogate and contains a 2.5 cm cyst, which is probably a dominant follicle. There is no free fluid. IMPRESSION: Probable left ovarian follicular cyst, 2.5 cm. Nonvisualization of the right ovary. Nonfocal uterus and endometrium. Dictated by: Dictated on workstation # [id number]
== END ==
LOC: RAD 13:17
PROVIDERS: ATTEND Obstetrics & Gynecology
DX: N83.202 Unspecified ovarian cyst, left side (principal)
CPT/HCPCS: 76830; 76856

== ENCOUNTER 2021-07-13 19:12 | Emergency (ER) | payer OTHER ==
[~2021-07-13] VITALS: Ht 160 cm; Wt 117.0 kg
[2021-07-13] MEDS ORDERED: ONDANSETRON 4 MG/2 ML (SDV) Z0FRAN IVP ONE (19:45)
[2021-07-13] MEDS ORDERED: NS IV 1000 ML 1,000 ML IV SCH (19:45)
[2021-07-13 19:51] LABS: BASOPHILS # (AUTO) 0.1 10^3/uL (0.0-0.1); BASOPHILS % (AUTO) 0 % (0-10); EOSINOPHILS % (AUTO) 0 % (0-10); HEMATOCRIT 43 % (35-52); HEMOGLOBIN 14.7 g/dL (11.5-16.0); LYMPHOCYTES # (AUTO) 2.5 10^3/uL (1.0-4.0); LYMPHOCYTES % (AUTO) 21 % (12-44); MEAN CORPUSCULAR HEMOGLOBIN 32 pg (25-34); MEAN CORPUSCULAR HGB CONC 34 g/dL (32-36); MEAN CORPUSCULAR VOLUME 94 fL (80-99); MEAN PLATELET VOLUME 10.8 fL (9.0-12.2); MONOCYTES # (AUTO) 0.6 10^3/uL (0.0-1.0); MONOCYTES % (AUTO) 5 % (0-12); NEUTROPHILS # (AUTO) 8.3 10^3/uL (1.8-7.8); NEUTROPHILS % (AUTO) 72 % (42-75); PLATELET COUNT 304 10^3/uL (130-400); WHITE BLOOD COUNT 11.5 10^3/uL (4.3-11.0)
--- NOTE | 2021-07-13 19:51 | ED GI ---
General Chief Complaint: Abdominal/GI Problems Stated Complaint: VOMITING Nursing Triage Note: PATIENT REPORTS DIZZINESS AND VOMITTING STARTED LAST SUNDAY, SEEN BY PHYSICIAN GIVEN STEROIDS/ANTIBIOTIC. NO IMPORVEMENT THIS PAST SUNDAY, RECEIVED ANOTHER DOSE OF A STEROID. PATIENT DENIES FEVER. History of Present Illness Date Seen by Provider: Jul 13, 2021 Time Seen by Provider: 19:40 Initial Comments 41-year-old female presents for dizziness,nausea and vomiting that started on 07/04/2021. She has been evaluated by her primary care provider who tested her for COVID and influenza which were both negative, she was positive for RSV. She was started on antibiotic and steroids. She had some improvement and was in on 07/11/2021 began having symptoms again. She was started on additional steroids. She reports vomiting several times today. She last ate approximately 3 hours ago. She has not taken any medications for nausea or vomiting. Timing/Duration: 6-7 Days Severity/Quality: Mild Location: Generalized Abdomen Radiation: No Radiation Associated Symptoms: Nausea/Vomiting Allergies and Home Medications Allergies Coded Allergies: morphine (Verified Allergy, Mild, N/V, 07/09/20) Patient Home Medication List Home Medication List Reviewed: Yes Hydrochlorothiazide (Hydrochlorothiazide) 25 Mg Tablet, 25 MG PO DAILY, (Reported) Entered as Reported by: TARSHA JEROME on 08/13/17 1445 Hydrocodone/Acetaminophen (Hydrocodone-Acetamin 5-325 mg) 1 Each Tablet, 1 EACH PO Q4H PRN for PAIN-MODERATE (5-7), (Reported) Entered as Reported by: YAMILETH RUVALCABA on 07/09/20 1104 Hydrocodone/Acetaminophen (Cross 7.5-325 Tablet) 1 Each Tablet, 1-2 TAB PO Q4H Prescribed by: BONG CALIXTO on 07/15/20 1156 Hydroxyzine HCl (Hydroxyzine HCl) 25 Mg Tablet, 25 MG PO PRN PRN for ANXIETY, (Reported) Entered as Reported by: YAMILETH RUVALCABA on 07/09/20 1104 Ibuprofen (Ibuprofen) 800 Mg Tablet, 800 MG PO Q8H PRN for PAIN-MILD, (Reported) Entered as Reported by: YAMILETH RUVALCABA on 07/09/20 1104 Lisinopril (Lisinopril) 20 Mg Tablet, 20 MG PO DAILY, (Reported) Entered as Reported by: TARSHA JEROME on 08/13/17 1445 Propranolol HCl (Propranolol HCl) 40 Mg Tablet, 40 MG PO DAILY, (Reported) Entered as Reported by: TARSHA JEROME on 08/13/17 1454 Topiramate (Topiramate) 100 Mg Tablet, 100 MG PO HS, (Reported) Entered as Reported by: YAMILETH RUVALCABA on 07/09/20 1104 Review of Systems Review of Systems Constitutional: no symptoms reported, see HPI, dizziness Respiratory: No Symptoms Reported, See HPI Gastrointestinal: See HPI, Nausea, Vomiting All Other Systems Reviewed Negative Unless Noted: Yes Past Fneafdj-Vgcwvc-Yqehaw Hx Patient Social History Tobacco Use?: No Use of E-Cig and/or Vaping dev: No Substance use?: No Alcohol Use?: No Pt feels they are or have been: No Immunizations Up To Date Influenza Vaccine Up-to-Date: Yes; Up-to-Date First/Initial COVID19 Vaccinat: APR 26 Second COVID19 Vaccination Andrea: APR 26 COVID19 Vaccine [place] Folder: [employer] Seasonal Allergies Seasonal Allergies: No Past Medical History Surgeries: Yes (back sx x2, foot sx) Gallbladder, Thyroidectomy Respiratory: No Cardiac: Yes Hypertension Neurological: No Sexually Transmitted Disease: No HIV/AIDS: No Genitourinary: No Gastrointestinal: Yes Chronic Constipation, Chronic Diarrhea, Gall Bladder Disease Musculoskeletal: Yes Arthritis, Chronic Back Pain Endocrine: Yes (PARTIAL THYROIDECTOMY) HEENT: Yes (GLASSES) Loss of Vision: Denies Hearing Impairment: Denies Cancer: No Psychosocial: Yes Anxiety Integumentary: No Blood Disorders: No Adverse Reaction/Blood Tranf: No (N/A) Family Medical History Reviewed Nursing Family Hx Physical Exam Vital Signs Vital Signs - First Documented 07/13/21 19:40 Temp 36.8 Pulse 80 Resp 20 B/P (MAP) 113/79 (90) Pulse Ox 100 O2 Delivery Room Air Capillary Refill : Less Than 3 Seconds Height/Weight/BMI Height: 5'6.00" Weight: 283lbs. 0.0oz. 128.175092hx; 45.00 BMI Method: General Appearance: WD/WN, no apparent distress HEENT: PERRL/EOMI, normal ENT inspection, TMs normal, pharynx normal Neck: non-tender, full range of motion, supple, normal inspection Respiratory: chest non-tender, lungs clear, normal breath sounds, no respiratory distress Cardiovascular: normal peripheral pulses, regular rate, rhythm Gastrointestinal: normal bowel sounds, non tender, soft Extremities: normal range of motion, non-tender, normal inspection Neurologic/Psychiatric: no motor/sensory deficits, alert, normal mood/affect, oriented x 3 Skin: normal color, warm/dry Progress/Results/Core Measures Results/Orders Lab Results Laboratory Tests Test 07/13/21 19:48 07/13/21 20:09 Range/Units White Blood Count 11.5 H 4.3-11.0 10^3/uL Red Blood Count 4.55 3.80-5.11 10^6/uL Hemoglobin 14.7 11.5-16.0 g/dL Hematocrit 43 35-52 % Mean Corpuscular Volume 94 80-99 fL Mean Corpuscular Hemoglobin 32 25-34 pg Mean Corpuscular Hemoglobin Concent 34 32-36 g/dL Red Cell Distribution Width 14.4 10.0-14.5 % Platelet Count 304 130-400 10^3/uL Mean Platelet Volume 10.8 9.0-12.2 fL Immature Granulocyte % (Auto) 1 % Neutrophils (%) (Auto) 72 42-75 % Lymphocytes (%) (Auto) 21 12-44 % Monocytes (%) (Auto) 5 0-12 % Eosinophils (%) (Auto) 0 0-10 % Basophils (%) (Auto) 0 0-10 % Neutrophils # (Auto) 8.3 H 1.8-7.8 10^3/uL Lymphocytes # (Auto) 2.5 1.0-4.0 10^3/uL Monocytes # (Auto) 0.6 0.0-1.0 10^3/uL Eosinophils # (Auto) 0.0 0.0-0.3 10^3/uL Basophils # (Auto) 0.1 0.0-0.1 10^3/uL Immature Granulocyte # (Auto) 0.1 0.0-0.1 10^3/uL Sodium Level 138 135-145 MMOL/L Potassium Level 3.4 L 3.6-5.0 MMOL/L Chloride Level 107 98-107 MMOL/L Carbon Dioxide Level 20 L 21-32 MMOL/L Anion Gap 11 5-14 MMOL/L Blood Urea Nitrogen 21 H 7-18 MG/DL Creatinine 0.81 0.60-1.30 MG/DL Estimat Glomerular Filtration Rate 78 BUN/Creatinine Ratio 26 Glucose Level 122 H 70-105 MG/DL Calcium Level 9.4 8.5-10.1 MG/DL Corrected Calcium 8.5-10.1 MG/DL Total Bilirubin 0.4 0.1-1.0 MG/DL Aspartate Amino Transf (AST/SGOT) 16 5-34 U/L Alanine Aminotransferase (ALT/SGPT) 24 0-55 U/L Alkaline Phosphatase 50 40-136 U/L Total Protein 7.8 6.4-8.2 GM/DL Albumin 4.6 H 3.2-4.5 GM/DL Urine Color YELLOW Urine Clarity CLEAR Urine pH 6.5 5-9 Urine Specific [place] 1.020 1.016-1.022 Urine Protein NEGATIVE NEGATIVE Urine Glucose (UA) NEGATIVE NEGATIVE Urine Ketones NEGATIVE NEGATIVE Urine Nitrite NEGATIVE NEGATIVE Urine Bilirubin NEGATIVE NEGATIVE Urine Urobilinogen 0.2 < = 1.0 MG/DL Urine Leukocyte Esterase NEGATIVE NEGATIVE Urine RBC (Auto) TRACE-I H NEGATIVE Urine RBC 0-2 /HPF Urine WBC NONE /HPF Urine Squamous Epithelial Cells 5-10 /HPF Urine Crystals NONE /LPF Urine Bacteria TRACE /HPF Urine Casts NONE /LPF Urine Mucus NEGATIVE /LPF Urine Culture Indicated NO My Orders Orders - ED SANTOS Ed Iv/Invasive Line Start (07/13/21 19:33) Ns Iv 1000 Ml (Sodium Chloride 0.9%) (07/13/21 19:45) Ondansetron Injection (Zofran Injectio (07/13/21 19:45) Cbc With Automated Diff (07/13/21 19:33) Comprehensive Metabolic Panel (07/13/21 19:33) Ua Culture If Indicated (07/13/21 19:33) Urine Bedside (07/13/21 19:35) Hyoscyamine Sl Tablet (Levsin Sl Tablet) (07/13/21 21:00) Rx-Ondansetron Po (Rx-Zofran Po) (07/13/21 21:00) Medications Given in ED Current Medications Medications Dose Ordered Sig/Connor Route Start Time Stop Time Status Last Admin Dose Admin Hyoscyamine Sulfate 0.125 mg ONCE ONCE SL 07/13/21 21:00 07/13/21 21:03 DC 07/13/21 21:09 0.125 MG Ondansetron HCl 8 mg ONCE ONCE IVP 07/13/21 19:45 07/13/21 19:46 DC 07/13/21 19:38 8 MG Vital Signs/I&O 07/13/21 07/13/21 19:40 21:12 Temp 36.8 36.7 Pulse 80 82 Resp 20 20 B/P (MAP) 113/79 (90) 104/77 Pulse Ox 100 99 O2 Delivery Room Air Room Air Blood Pressure Mean: 90 Progress Progress Note : Time: 19:40 Progress Note Patient seen and evaluated, will obtain labs, normal saline 1 L per IV, Zofran 8 mg IV. 2044 patient reports improvement in symptoms, labs normal, discharge instructions and return precautions reviewed with her. Departure Impression Primary Impression: Diarrhea Qualified Codes: R19.7 - Diarrhea, unspecified Additional Impression: Nausea and vomiting Qualified Codes: R11.2 - Nausea with vomiting, unspecified Disposition: 01 HOME, SELF-CARE Condition: Improved Departure-Patient Inst. Decision time for Depature: 20:45 Referrals: EDWARDO ROSE MD (PCP/Family) Primary Care Physician Patient Instructions: Nausea and Vomiting, Adult (DC), Viral Gastroenteritis, Adult (DC) Add. Discharge Instructions: Clear liquid diet for the next 6 to 8 hours then bland diet as tolerated. Use the Zofran every 6-8 hours as needed for nausea and vomiting. Get Imodium [id number] and take 2 tablets every 4 hours as needed for diarrhea. Follow-up with your primary care provider tomorrow if symptoms or not improving or worsen. Return to the emergency department for new, urgent healthcare needs. All discharge instructions reviewed with patient and/or family. Voiced understanding. Copy Copies To 1: EDWARDO ROSE MD, AMY ARNP Jul 13, 2021 19:51
[2021-07-13 20:09] LABS: ALANINE AMINOTRANSFERASE 24 U/L (0-55); ALBUMIN 4.6 GM/DL (3.2-4.5); ALKALINE PHOSPHATASE 50 U/L (40-136); BILIRUBIN,TOTAL 0.4 MG/DL (0.1-1.0); BUN/CREATININE RATIO 26; CALCIUM 9.4 MG/DL (8.5-10.1); CARBON DIOXIDE 20 MMOL/L (21-32); CHLORIDE 107 MMOL/L (98-107); CREATININE SERUM 0.81 MG/DL (0.60-1.30); GFR ESTIMATED 78; GLUCOSE 122 MG/DL (70-105); POTASSIUM 3.4 MMOL/L (3.6-5.0); SODIUM 138 MMOL/L (135-145); TOTAL PROTEIN 7.8 GM/DL (6.4-8.2)
[2021-07-13 20:12] LABS: BILIRUBIN,URINE NEGATIVE (NEGATIVE); CLARITY,URINE CLEAR; COLOR,URINE YELLOW; GLUCOSE, URINE (UA) NEGATIVE (NEGATIVE); KETONES,URINE NEGATIVE (NEGATIVE); LEUKOCYTE ESTERASE ,URINE NEGATIVE (NEGATIVE); NITRITE,URINE NEGATIVE (NEGATIVE); PH,URINE 6.5 (5-9); PROTEIN,URINE NEGATIVE (NEGATIVE)
[2021-07-13 20:19] LABS: BACTERIA,URINE TRACE /HPF; RBC,URINE 0-2 /HPF
[2021-07-13] MEDS ORDERED: HYOSCYAMINE 0.125 MG (LEVSIN) TAB SL ONE (21:00)
[2021-07-13] MEDS ORDERED: RX-ONDANSETRON 4 MG ODT (ZOFRAN) PPK #4 PO STA (21:00)
[2021-07-13 21:12] VITALS: BP 104/77
== END 2021-07-13 21:17 | disposition home or self-care (01) ==
LOC: EDUNIT# 19:12 → ER 19:14
DX: R19.7 Diarrhea, unspecified (principal); R11.2 Nausea with vomiting, unspecified; I10 Essential (primary) hypertension; F41.9 Anxiety disorder, unspecified; G89.29 Other chronic pain; M54.9 Dorsalgia, unspecified; Z79.899 Other long term (current) drug therapy; Z79.891 Long term (current) use of opiate analgesic
CPT/HCPCS: 36415; 80053; 81000; 84703; 85025

== ENCOUNTER → 2021-08-25 | Outpatient (CLI) | payer OTHER ==
--- NOTE | 2021-08-25 17:59 | Diagnostic Imaging Report ---
EXAMINATION: Right forearm radiographs, 2 views. COMPARISON: None. HISTORY: 41-year-old female, right forearm pain and swelling. FINDINGS: There is no acute fracture. There is no cortical or aggressive bone destruction. There is no radiopaque foreign body. There is no elbow joint effusion. IMPRESSION: No acute abnormality of the right forearm. Dictated by: Dictated on workstation # [id number]
== END ==
LOC: RAD 17:26
PROVIDERS: ATTEND Family Medicine
DX: M79.631 Pain in right forearm (principal); M79.89 Other specified soft tissue disorders
CPT/HCPCS: 73090

== ENCOUNTER → 2021-11-02 | Outpatient (CLI) | payer OTHER ==
--- NOTE | 2021-11-02 17:03 | Diagnostic Imaging Report ---
INDICATION: Endometrial thickening. TECHNIQUE/COMPARISON: Pelvic sonography was performed with transabdominal and transvaginal views with comparison to the prior study of 04/29/2021. FINDINGS: The uterus measures 7.5 x 4.2 x 5.1 cm. The uterus is anteverted. There is no myometrial mass. The endometrium measures 2.5 mm and appears normal. The endometrial thickening seen on 04/29/2021 has resolved. The right ovary could not be visualized on today's study. The left ovary appears normal with normal color flow. The left ovary measures 3.0 x 1.8 x 2.4 cm with the previous left ovarian cyst no longer visualized. There is no free fluid. IMPRESSION: Normal-appearing uterus with no significant endometrial thickening. The endometrial thickening seen on 04/29/2021 has resolved. Normal-appearing left ovary with the previous left ovarian cyst no longer visualized. The right ovary could not be visualized on today's study. Dictated by: Dictated on workstation # [id number]
== END ==
LOC: RAD 14:30
PROVIDERS: ATTEND Obstetrics & Gynecology
DX: R93.89 Abnormal findings on diagnostic imaging of other specified body structures (principal)
CPT/HCPCS: 76830; 76856

== ENCOUNTER 2021-12-29 05:28 | Outpatient (CLI) | payer OTHER ==
[~2021-12-29] VITALS: Ht 160 cm; Wt 127.0 kg
== END 2021-12-29 16:08 | disposition home or self-care (01) ==
LOC: PREOP 05:28
PROVIDERS: ATTEND Obstetrics & Gynecology
DX: Z01.818 Encounter for other preprocedural examination (principal)

== ENCOUNTER 2022-01-05 05:52 | Day surgery (SDC) | payer OTHER ==
[2022-01-05] VITALS (9 sets, daily range): BP systolic 107–122; BP diastolic 65–91
[~2022-01-05] VITALS: Ht 160 cm; Wt 127.0 kg
[2022-01-05] MEDS ORDERED: ceFAZolin 2 GM IV Premixed 50 ML ONE (06:11)
[2022-01-05] MEDS ORDERED: LACTATED RINGERS 1,000 ML IV PRN (06:15)
[2022-01-05] MEDS ORDERED: ceFAZolin 2 GM IV Premixed 50 ML IV ONE (06:15)
[2022-01-05] MEDS ORDERED: proPOfol 200 MG/20 ML (DIPRIVAN) VIAL IV ONE (07:03)
[2022-01-05] MEDS ORDERED: LIDOCAINE PF 2% 5 ML (XYLOCAINE) VIAL ONE (07:03)
[2022-01-05] MEDS ORDERED: SEVOFLURANE (ULTANE) 15 ML INHAL SOLN ONE ×2 (07:03→09:27)
[2022-01-05] MEDS ORDERED: ONDANSETRON 4 MG/2 ML (SDV) Z0FRAN ONE ×2 (07:03→10:32)
[2022-01-05] MEDS ORDERED: MIDAZOLAM 2 MG/2 ML (VERSED) VIAL ONE (07:04)
[2022-01-05] MEDS ORDERED: fentaNYL INJ 100 MCG/2 ML AMP ONE (07:04)
[2022-01-05] MEDS ORDERED: ROCURONIUM 50 MG/5 ML (ZEMURON) VIAL IV ONE ×2 (07:04→08:28)
[2022-01-05 07:24] LABS: BASOPHILS % (AUTO) 1 % (0-10); EOSINOPHILS # (AUTO) 0.1 10^3/uL (0.0-0.3); EOSINOPHILS % (AUTO) 1 % (0-10); HEMATOCRIT 46 % (35-52); HEMOGLOBIN 15.8 g/dL (11.5-16.0); LYMPHOCYTES # (AUTO) 1.4 10^3/uL (1.0-4.0); LYMPHOCYTES % (AUTO) 18 % (12-44); MEAN CORPUSCULAR HEMOGLOBIN 33 pg (25-34); MEAN CORPUSCULAR HGB CONC 35 g/dL (32-36); MEAN CORPUSCULAR VOLUME 95 fL (80-99); MEAN PLATELET VOLUME 10.7 fL (9.0-12.2); MONOCYTES # (AUTO) 0.5 10^3/uL (0.0-1.0); MONOCYTES % (AUTO) 6 % (0-12); NEUTROPHILS # (AUTO) 5.9 10^3/uL (1.8-7.8); NEUTROPHILS % (AUTO) 74 % (42-75); PLATELET COUNT 227 10^3/uL (130-400)
--- NOTE | 2022-01-05 07:35 | Progress Note-Pre Operative ---
Pre-Operative Progress Note H&P Reviewed The H&P was reviewed, patient examined and no changes noted. Date Seen by Provider: Jan 05, 2022 Time Seen by Provider: 07:18 Date H&P Reviewed: Jan 05, 2022 Time H&P Reviewed: 07:25 Pre-Operative Diagnosis: AUB, declines medical therapy. AVE PEREZ MD Jan 05, 2022 07:35
[2022-01-05] MEDS ORDERED: ESTR-44 TD (07:39)
[2022-01-05] MEDS ORDERED: OXYC5CAP18 PO (07:47)
[2022-01-05 07:57] LABS: CHLORIDE 109 MMOL/L (98-107); POTASSIUM 3.5 MMOL/L (3.6-5.0); SODIUM 137 MMOL/L (135-145)
[2022-01-05 07:59] LABS: CALCIUM 9.8 MG/DL (8.5-10.1)
[2022-01-05 08:00] LABS: GLUCOSE 101 MG/DL (70-105); TOTAL PROTEIN 8.6 GM/DL (6.4-8.2)
[2022-01-05] MEDS ORDERED: NALOXONE 0.4 MG/ML 1 ML (NARCAN) VIAL IV PRN (08:00)
[2022-01-05] MEDS ORDERED: D5 LR IV SOLUTION 1,000 ML IV SCH (08:00)
[2022-01-05] MEDS ORDERED: ONDANSETRON 4 MG/2 ML (SDV) Z0FRAN IVP PRN ×2 (08:00→09:45)
[2022-01-05 08:01] LABS: BILIRUBIN,TOTAL 0.7 MG/DL (0.1-1.0); CARBON DIOXIDE 16 MMOL/L (21-32)
[2022-01-05 08:03] LABS: ALKALINE PHOSPHATASE 52 U/L (40-136); CREATININE SERUM 0.87 MG/DL (0.60-1.30); GFR ESTIMATED 86
[2022-01-05 08:04] LABS: BUN/CREATININE RATIO 16
[2022-01-05 08:06] LABS: ALANINE AMINOTRANSFERASE 24 U/L (0-55)
[2022-01-05] MEDS ORDERED: HYDROmorphone 2 MG/ML VIAL (DILAUDID) ONE (08:22)
[2022-01-05] MEDS ORDERED: GLYCOPYRROLATE 0.2 MG/ML (ROBINUL) 2 ML VIAL ONE (09:21)
[2022-01-05] MEDS ORDERED: NEOSTIGMINE 3 MG/3 ML VIAL ONE (09:21)
[2022-01-05] MEDS ORDERED: KETOROLAC 30 MG/ML VIAL ONE (09:25)
[2022-01-05] MEDS: KETOROLAC 30 MG/ML VIAL IV SCH ×2 (09:30→15:34)
[2022-01-05] MEDS ORDERED: HYDROmorphone 2 MG/ML VIAL (DILAUDID) IV ONE (09:45)
--- NOTE | 2022-01-05 09:45 | Operative Report ---
Operative Report Date of Procedure/Surgery Jan 05, 2022 Surgeon (s) ILIANA MOLINA MD Agriculture Teacher (s): n/a Post-Operative Diagnosis AUB, declined medical therapy Procedure Performed RALH-BSO Description of Procedure Anesthesia Type: General Estimated blood loss (mL): minimal Specimen(s) collected/removed uterus, tubes, ovaries, cervix Description of the Procedure After the benefits of terms of the procedure was gone to the patient she was taken to the operating room where general anesthesia was obtained with difficulty patient is placed in dorsolithotomy position prepped and draped in the usual sterile fashion. A Campos catheter and SCDs were in place. A weighted speculum was placed in the patient's vagina and the anterior lip of the cervix grasped with a double-tooth tenaculum and dilated to accommodate an 8 mm tip Concetta retractor following adequate sounding. The remainder of the retractor was assembled in the usual sterile fashion with a 2.5 cm cervical cup and all other instruments removed in the patient's vagina attention was turned the abdominal portion of the procedure. An 8 mm skin incision was made above the umbilicus and a varies needle was advanced all tenting the abdominal wall upward. Pneumoperitoneum was achieved and the bracing was removed and a 8 mm trocar and sleeve were advanced without difficulty. Intra-abdominal placement was confirmed with the laparoscope and the patient was placed in Trendelenburg. Smooth liver edge was noted. An 8 mm skin incision was made the right and left lower quadrants and corresponding trocar sleeves were advanced without difficulty under direct visualization. The pelvis was were surveyed with the above findings including normal-appearing uterus and tubes left ovary nodular without discrete masses or cysts. The robot was docked in the usual sterile fashion and in the second arm the vessel sealer was placed the third arm camera and the fourth arm monopolar hook cautery. From the robotic console colon was noted to be adhesed to the left round ligament and left pelvic sidewall and was dissected with robot instruments. The ureters were visualized to course over the pelvic brim along the pelvic sidewall outside the anticipated surgical field. The infundibulopelvic ligaments were isolated cauterized and cut hemostasis was assured. Remainder the adnexal structures were amputated similar fashion. The round ligaments were isolated cauterized and cut hemostasis was assured. The anterior and posterior leaves of the broad ligaments were dissected down towards the cervix the uterine vessels skeletonized isolated cauterized and cut hemostasis was assured. The vesicouterine peritoneum was dissected off the anterior cervix and an anterior colpotomy was made over the cuff and carried out circumferentially amputating the cervix. The specimen was delivered through the vagina intact and sent for pathology. lap sponge was placed in the patient's vagina to maintain pneumoperitoneum. The instruments were exchanged for a fenestrated bipolar and the second arm and Alfred suture cut in the fourth. The vaginal cuff was closed with a barbed V-Loc stitch running lateral to the midline closing in the midline. All instruments removed and the patient's abdomen hemostasis was assured. Skin incisions were closed with subcuticular 4 Monocryl stitch. Dermabond dressing was placed. The sponge was removed and the patient was dried and hemostasis was assured. The Campos catheter was removed. Patient tolerated the procedure well. Sponge lap needle limits and instrument counts were correct x2 and she was taken to the recovery room awake and in stable condition. She received 2 g of Ancef prior to procedure. Findings of the Procedure see operative report Allergies and Home Medications Allergies Coded Allergies: morphine (Verified Allergy, Mild, N/V, 07/09/20) Patient Home Medication List Home Medication List Reviewed: Yes Estradiol (Estradiol Patch Twice Weekly 0.1mg/hr) 0.1 Mg/24 Hour Patch.tdsw, 1 EACH TD Twice Weekly Prescribed by: Iliana Molina on 01/05/22 0739 Hydrochlorothiazide (Hydrochlorothiazide) 25 Mg Tablet, 25 MG PO DAILY, (Reported) Entered as Reported by: TARSHA JEROME on 08/13/17 1445 Hydroxyzine HCl (Hydroxyzine HCl) 25 Mg Tablet, 25 MG PO PRN PRN for ANXIETY, (Reported) Entered as Reported by: YAMILETH RUVALCABA on 07/09/20 1104 Ibuprofen (Ibuprofen) 800 Mg Tablet, 800 MG PO Q8H PRN for PAIN-MILD, (Reported) Entered as Reported by: YAMILETH RUVALCABA on 07/09/20 1104 Lisinopril (Lisinopril) 20 Mg Tablet, 20 MG PO DAILY, (Reported) Entered as Reported by: TARSHA JEROME on 08/13/17 1445 Oxycodone HCl (Oxycodone HCl) 5 Mg Capsule, 5 MG PO Q6H Prescribed by: Iliana Molina on 01/05/22 0747 Propranolol HCl (Propranolol HCl) 40 Mg Tablet, 40 MG PO DAILY, (Reported) Entered as Reported by: TARSHA JEROME on 08/13/17 1454 Topiramate (Topiramate) 100 Mg Tablet, 100 MG PO HS, (Reported) Entered as Reported by: YAMILETH RUVALCABA on 07/09/20 1104 ILIANA MOLINA MD Jan 05, 2022 09:45
[2022-01-05] MEDS ORDERED: ACETAMINOPHEN 500 MG TAB (TYLENOL) PO SCH (12:00)
--- NOTE | 2022-01-06 07:35 | Anesthesia-General Post-Op ---
General Patient Condition Mental Status/LOC: Same as Preop Cardiovascular: Satisfactory Nausea/Vomiting: Absent Respiratory: Satisfactory Pain: Controlled Complications: Absent Post Op Complications Complications None Follow Up Care/Instructions Patient Instructions None needed. Anesthesia/Patient Condition Patient Condition Patient is doing well, no complaints, stable vital signs, no apparent adverse anesthesia problems. No complications reported per nursing. D[place]C [place] [facility] [place]: Yes MARIA LUISA RIOS CRNA Jan 06, 2022 07:35
[2022-01-06] MEDS ORDERED: DOCUSATE SODIUM 100 MG (COLACE) CAP PO SCH (09:00)
[2022-01-06] MEDS ORDERED: IBUPROFEN 600 MG (MOTRIN) TAB PO SCH (12:00)
== END 2022-01-05 17:40 | disposition home or self-care (01) ==
LOC: SDC 05:52 → WS 10:40 → SDC 17:40
PROVIDERS: ATTEND Obstetrics & Gynecology
DX: N84.0 Polyp of corpus uteri (principal); N83.01 Follicular cyst of right ovary; N83.8 Other noninflammatory disorders of ovary, fallopian tube and broad ligament; N83.202 Unspecified ovarian cyst, left side; N73.6 Female pelvic peritoneal adhesions (postinfective); N93.9 Abnormal uterine and vaginal bleeding, unspecified
CPT/HCPCS: 36415; 80053; 84703; 85025; 86850; 86900; 86901; 87081; 94664